=== PATIENT | male | born 1975 | race Caucasian/White ===

== ENCOUNTER 2017-12-04 06:25 | Day surgery (SDC) | payer BC ==
[~2017-12-04 06:25] MED LIST: Lactated Ringers 1,000 ML IV SCH; Sodium Chloride 0.9% 10 ML Syringe FLUSH PRN; Sodium Chloride 0.9% 2.5 ML Syringe FLUSH PRN; ceFAZolin 2 GM in Premix Bag 1 BAG IV ONE
--- NOTE | 2017-12-04 07:25 | PCM.PREANE ---
Preanesthetic Assessment - Procedure Proposed Procedure: inguinal hernia repair - Anesthesia/Transfusion/Family Hx Anesthesia History: Prior Anesthesia Without Reaction Transfusion History: No Prior Transfusion(s) Intubation History: Unknown Additional History: Prior right hernia repair as child, two repairs on left in past. - Review of Systems General: No Symptoms, Other (HPI hernia) Pulmonary: No Symptoms Cardiovascular: No Symptoms Gastrointestinal: No Symptoms Neurological: No Symptoms Other: Reports: None - Physical Assessment NPO Status Date: 12/03/17 NPO Status Time: 22:00 O2 Sat by Pulse Oximetry: 96 Respiratory Rate: 16 Vital Signs: Last Vital Signs Temp 98.2 F 12/04/17 06:39 Pulse 71 12/04/17 06:39 Resp 16 12/04/17 06:39 BP 127/85 12/04/17 06:39 Pulse Ox 96 12/04/17 06:39 Height: 5 ft 10 in Weight: 201 lb ASA Class: 1 Mental Status: Alert & Oriented x3 Airway Class: Mallampati = 1 Dentition: Reports: Normal Dentition Thyro-Mental Finger Breadths: 3 Mouth Opening Finger Breadths: 3 ROM/Head Extension: Full Lungs: Clear to Auscultation, Normal Respiratory Effort Cardiovascular: Regular Rate, Regular Rhythm, No Murmurs - Allergies Allergies/Adverse Reactions: Allergies Allergy/AdvReac Type Severity Reaction Status Date / Time No Known Allergies Allergy Verified 11/27/17 15:19 - Blood Blood Available: No Product(s) Available: None - Acknowledgements Anesthesia Type Planned: General Anesthesia (OET) Pt an Appropriate Candidate for the Planned Anesthesia: Yes Alternatives and Risks of Anesthesia Discussed w Pt/Guardian: Yes Pt/Guardian Understands and Agrees with Anesthesia Plan: Yes PreAnesthesia Questionnaire HEENT History: Reports: None Gastrointestinal History: Reports: None - Past Surgical History Head Surgeries/Procedures: Reports: None HEENT Surgical History: Reports: Naso-Sinus Surgery GI Surgical History: Reports: Hernia, Inguinal Other GI Surgeries/Procedures: hx rt inguinal hernia repair x1 and left inguinal hernia repair x2 - SUBSTANCE USE Smoking Status *Q: Never Smoker Recreational Drug Use History: No - HOME MEDS Home Medications: Home Meds . [No Known Home Meds] 09/01/17 [History] - CURRENT (IN HOUSE) MEDS Current Meds: Current Medications Lactated Ringer's (Ringers, Lactated) 1,000 mls @ 125 mls/hr IV ASDIRECTED LAZARO Last Admin: 12/04/17 06:43 Dose: 125 mls/hr Sodium Chloride (Saline Flush) 10 ml FLUSH ASDIRECTED PRN PRN Reason: Keep Vein Open Sodium Chloride (Saline Flush) 2.5 ml FLUSH ASDIRECTED PRN PRN Reason: Keep Vein Open Discontinued Medications Cefazolin Sodium/Dextrose 2 gm (/ Premix) 50 mls @ 100 mls/hr IV ONETIME ONE Stop: 12/03/17 10:23
[2017-12-04] MEDS ORDERED: Propofol 200 MG/20 ML SDV ONE (07:28)
[2017-12-04] MEDS ORDERED: Lidocaine 2% 5 ML SDV ONE (07:28)
[2017-12-04] MEDS ORDERED: Rocuronium 10 MG/ML 10 ML Syringe ONE (07:28)
[2017-12-04] MEDS ORDERED: Midazolam 1 MG/ML 2 ML SDV ONE (07:28)
[2017-12-04] MEDS ORDERED: fentaNYL 100 MCG/2 ML SDV ONE (07:28)
[2017-12-04] MEDS ORDERED: Bupivacaine 25%/EPINEPHrine/PF 0 ML ONE (07:29)
[2017-12-04] MEDS ORDERED: ceFAZolin/Dextrose,Iso-Osmotic 2 GM/50 ML Duplex Bag IV ONE (07:42)
[2017-12-04] MEDS ORDERED: Bupivacaine 0.5% 30 ML SDV ONE (07:47)
[2017-12-04] MEDS ORDERED: Ketorolac 30 MG/ML SDV ONE (08:32)
[2017-12-04] MEDS ORDERED: Ondansetron 4 MG/2 ML SDV ONE (08:32)
[2017-12-04] MEDS ORDERED: Metoclopramide 10 MG/2 ML SDV ONE (08:32)
[2017-12-04] MEDS ORDERED: Dexamethasone 4 MG/ML 5 ML MDV ONE (08:32)
[2017-12-04] MEDS ORDERED: fentaNYL 100 MCG/2 ML SDV IVPUSH PRN (08:52)
[2017-12-04] MEDS ORDERED: Glycopyrrolate 0.2 MG/ML SDV ONE (09:33)
[2017-12-04] MEDS ORDERED: Neostigmine Methylsulfate 1 MG/ML 5 ML Syringe ONE (09:33)
--- NOTE | 2017-12-04 09:50 | PCM.OPNOTE ---
- General Post-Op/Procedure Note Date of Surgery/Procedure: 12/04/17 Operative Procedure(s): Right recurrent inguinal hernia repair Findings: Direct hernia on right side proximal to internal ring. Moderate amount of scar tissue. Pre Op Diagnosis: Recurrent inguinal hernia Post-Op Diagnosis: Right direct inguinal hernia Anesthesia Technique: General ET Tube Primary Surgeon: Erika Denis Condition: Good
--- NOTE | 2017-12-04 10:54 | PCM.POSTAN ---
POST ANESTHESIA ASSESSMENT - MENTAL STATUS Mental Status: Alert, Oriented Free Text/Narrative:: no complaint of pain nor nausea; limited narcotic use for case. - RESPIRATORY Respiratory Status: Respiratory Rate WNL, Airway Patent, O2 Saturation Stable - CARDIOVASCULAR CV Status: Pulse Rate WNL, Blood Pressure Stable - GASTROINTESTINAL GI Status: No Symptoms - POST OP HYDRATION Hydration Status: Adequate & Stable
--- NOTE | 2017-12-04 12:04 | OR ---
SURGEON: AMBERLY KUMAR MD DATE OF PROCEDURE: 12/04/2017 PREOPERATIVE DIAGNOSIS: Recurrent inguinal hernia. POSTOPERATIVE DIAGNOSIS: Direct inguinal hernia. PROCEDURE PERFORMED: Right inguinal hernia repair. ANESTHESIA: General endotracheal anesthesia. FLUIDS: See anesthesia record. ESTIMATED BLOOD LOSS: 10 mL. FINDINGS: Direct inguinal hernia close to the internal ring. Moderate amount of scar tissue within the inguinal canal. COMPLICATIONS: None. INDICATIONS: The patient is a 41-year-old male who presents with symptomatic right inguinal hernia. He previously had this repaired primarily as a child. We discussed an open inguinal hernia repair. I explained the procedure as well as expected perioperative course. I explained to him the risks including bleeding, infection, or damage to surrounding structures. These risks are increased given the fact that this is a recurrent inguinal hernia repair. The patient verbalized understanding and wishes to proceed. PROCEDURE IN DETAIL: The patient was brought into the OR and placed on the OR table in supine position. A time-out was completed verifying the patient's name, age, date of , allergies, and procedure to be performed. General endotracheal anesthesia was induced. The lower abdomen, upper legs, and groin were prepped in standard fashion. The area right above the right inguinal ligament was anesthetized with 0.5% Marcaine plain. An oblique incision was made about 1 fingerbreadth above the inguinal ligament. Cautery was used to dissect down through the subcutaneous fat. An area of thickened scar tissue was noted. Metzenbaum scissors was used to dissect the tissue away. It is felt that this was the remnant of the external oblique fascia. This was opened primarily with Metzenbaum scissors and blunt dissection was used to identify my spermatic cord down to the level of the pubic tubercle. Once I identified the pubic tubercle, I then cleared away the soft tissue along the inguinal ligament and superiorly along the transversalis fascia. I then was able to free up the cord structures at the level of the pubic tubercle and encircled it with a [place] drain. I then followed the cord structures up to the level of the internal ring. No indirect inguinal hernia sac was noted. The patient was, however, found to have a defect in the floor of the inguinal canal proximal to the internal ring consistent with a direct inguinal hernia. This was very small and there were no intestinal contents noted within the sac. This was easily reduced back into the abdomen. A medium sized Prolene mesh was then opened and placed in the field. This was trimmed to size to fit along the inguinal canal. The mesh was sutured to the pubic tubercle medially along the ilioinguinal ligament inferiorly and along the transversalis fascia superiorly. This was done using interrupted 0 Ethibond suture. A slit was made in the mesh to allow passage of the cord contents through it. This was closed in such a manner to allow enough room for just the tip of my finger to pass through. The area was then irrigated and the tissue overlying the cord structures was closed with a running 3-0 Vicryl suture along the previously opened external oblique fascia. Another running 3-0 Vicryl was used to close the subcutaneous fat over this. The skin was then closed using a running 4-0 Monocryl suture. Steri-Strips and sterile dressings were applied. The testicle was palpated in the scrotum and found to be in good position. The patient tolerated procedure well and was taken to PACU in stable condition. EVELYNE CHASE /[id number]
--- NOTE | 2017-12-04 12:13 | PCM48HPAN ---
Post Anesthesia Note - EVALUATION WITHIN 48HRS OF ANESTHETIC Vital Signs in Normal Range: Yes Patient Participated in Evaluation: Yes Respiratory Function Stable: Yes Airway Patent: Yes Cardiovascular Function Stable: Yes Hydration Status Stable: Yes Pain Control Satisfactory: Yes Nausea and Vomiting Control Satisfactory: Yes Mental Status Recovered: Yes Resp Rate: 14
== END 2017-12-04 12:33 | disposition home or self-care (01) ==
LOC: MW.SDS 06:25
PROVIDERS: ATTEND Surgery
DX: K40.91 Unilateral inguinal hernia, without obstruction or gangrene, recurrent (principal); Z98.890 Other specified postprocedural states
CPT/HCPCS: 49520; C1781; J0690; J1100; J1885; J2250; J2405; J2765; J3010; J7120; 00830; J2704

== ENCOUNTER 2021-06-21 10:55 | Day surgery (SDC) | payer BC ==
[~2021-06-21 10:55] MED LIST changes: +Midazolam 1 MG/ML 2 ML SDV ONE; +Propofol 200 MG/20 ML SDV ONE; +Sodium Chloride 0.9% 10 ML SDV IV PRN; -ceFAZolin 2 GM in Premix Bag 1 BAG IV ONE
--- NOTE | 2021-06-21 11:36 | PCM.PREANE ---
Preanesthetic Assessment - Procedure Proposed Procedure: Colonoscopy - Anesthesia/Transfusion/Family Hx Anesthesia History: Prior Anesthesia Without Reaction Family History of Anesthesia Reaction: No Transfusion History: No Prior Transfusion(s) Intubation History: Unknown - Review of Systems General: No Symptoms Pulmonary: No Symptoms Cardiovascular: No Symptoms Gastrointestinal: No Symptoms Neurological: No Symptoms Other: Reports: None - Physical Assessment NPO Status Date: 06/19/21 NPO Status Time: 20:30 (Solids, >6 hr Liq) Height: 5 ft 10 in Weight: 78.018 kg ASA Class: 1 Mental Status: Alert & Oriented x3 Airway Class: Mallampati = 2 Dentition: Reports: Normal Dentition Thyro-Mental Finger Breadths: 3 Mouth Opening Finger Breadths: 3 - Allergies Allergies/Adverse Reactions: Allergies Allergy/AdvReac Type Severity Reaction Status Date / Time No Known Allergies Allergy Verified 06/15/21 07:51 - Acknowledgements Anesthesia Type Planned: General Anesthesia Pt an Appropriate Candidate for the Planned Anesthesia: Yes Alternatives and Risks of Anesthesia Discussed w Pt/Guardian: Yes Pt/Guardian Understands and Agrees with Anesthesia Plan: Yes PreAnesthesia Questionnaire HEENT History: Reports: None Cardiovascular History: Reports: None Respiratory History: Reports: None Gastrointestinal History: Reports: None Genitourinary History: Reports: None Musculoskeletal History: Reports: None Neurological History: Reports: Other (See Below) Other Neuro History: "possible concussion" Psychiatric History: Reports: None Endocrine/Metabolic History: Reports: None Hematologic History: Reports: None Immunologic History: Reports: None Oncologic (Cancer) History: Reports: None Dermatologic History: Reports: None - Past Surgical History Head Surgeries/Procedures: Reports: None HEENT Surgical History: Reports: Naso-Sinus Surgery Other HEENT Surgeries/Procedures: sinus surgery x2 Cardiovascular Surgical History: Reports: None Respiratory Surgical History: Reports: None GI Surgical History: Reports: Hernia, Inguinal Other GI Surgeries/Procedures: hx rt inguinal hernia repair x1 and left inguinal hernia repair x2 Male Surgical History: Reports: Vasectomy Endocrine Surgical History: Reports: None Neurological Surgical History: Reports: None Musculoskeletal Surgical History: Reports: None Oncologic Surgical History: Reports: None Dermatological Surgical History: Reports: None - SUBSTANCE USE Tobacco Use Status *Q: Never Tobacco User Recreational Drug Use History: No - HOME MEDS Home Medications: Home Meds . [No Known Home Meds] 09/01/17 [History] - CURRENT (IN HOUSE) MEDS Current Meds: Current Medications Lactated Ringer's (Ringers, Lactated) 1,000 mls @ 125 mls/hr IV ASDIRECTED LAZARO Sodium Chloride (Sodium Chloride 0.9% 10 Ml Syringe) 10 ml FLUSH ASDIRECTED PRN PRN Reason: Keep Vein Open Sodium Chloride (Sodium Chloride 0.9% 2.5 Ml Syringe) 2.5 ml FLUSH ASDIRECTED PRN PRN Reason: Keep Vein Open Sodium Chloride (Sodium Chloride 0.9% 10 Ml Syringe) 10 ml FLUSH ASDIRECTED PRN PRN Reason: Keep Vein Open Sodium Chloride (Sodium Chloride 0.9% 2.5 Ml Syringe) 2.5 ml FLUSH ASDIRECTED PRN PRN Reason: Keep Vein Open Sodium Chloride (Sodium Chloride 0.9% 10 Ml Sdv) 10 ml IV ASDIRECTED PRN PRN Reason: IV Use Discontinued Medications Midazolam HCl (Midazolam 1 Mg/Ml 2 Ml Sdv) Confirm Administered Dose 2 mg .ROUTE .STK-MED ONE Stop: 06/21/21 07:23 Propofol (Propofol 200 Mg/20 Ml Sdv) Confirm Administered Dose 600 mg .ROUTE .STK-MED ONE Stop: 06/21/21 07:23
--- NOTE | 2021-06-21 13:57 | PCM.OPNOTE ---
- General Post-Op/Procedure Note Date of Surgery/Procedure: 06/21/21 Operative Procedure(s): Screening colonoscopy Findings: 2 small sigmoid colon polyps. Sigmoid colon diverticulosis Pre Op Diagnosis: Screening colonoscopy Post-Op Diagnosis: Diverticulosis, sigmoid colon polyp [place] [facility] [place] Surgeon: Erika Denis Condition: Good
--- NOTE | 2021-06-21 14:00 | PCM.POSTAN ---
POST ANESTHESIA ASSESSMENT - MENTAL STATUS Mental Status: Alert, Oriented - VITAL SIGNS Vital Signs: Last Vital Signs Temp 97.5 F 06/21/21 11:50 Pulse 60 06/21/21 11:50 Resp 16 06/21/21 11:50 BP 109/71 06/21/21 11:50 Pulse Ox 98 06/21/21 11:50 - RESPIRATORY Respiratory Status: Respiratory Rate WNL, Airway Patent, O2 Saturation Stable - CARDIOVASCULAR CV Status: Pulse Rate WNL, Blood Pressure Stable - GASTROINTESTINAL GI Status: No Symptoms - PAIN Pain Score: 0 - POST OP HYDRATION Hydration Status: Adequate & Stable
--- NOTE | 2021-06-21 14:04 | PCM48HPAN ---
Post Anesthesia Note - EVALUATION WITHIN 48HRS OF ANESTHETIC Vital Signs in Normal Range: Yes Patient Participated in Evaluation: Yes Respiratory Function Stable: Yes Airway Patent: Yes Cardiovascular Function Stable: Yes Hydration Status Stable: Yes Pain Control Satisfactory: Yes Nausea and Vomiting Control Satisfactory: Yes Mental Status Recovered: Yes Vital Signs: Last Vital Signs Temp 97.5 F 06/21/21 11:50 Pulse 60 06/21/21 11:50 Resp 16 06/21/21 11:50 BP 109/71 06/21/21 11:50 Pulse Ox 98 06/21/21 11:50 - COMMENTS/OBSERVATIONS Free Text/Narrative:: Pt doing well post-op. VSS. No apparent anesthetic complications. Dr. Helio Sal
--- NOTE | 2021-06-22 13:45 | OR ---
SURGEON: ERIKA DENIS MD DATE OF PROCEDURE: 06/21/2021 PREOPERATIVE DIAGNOSIS: Screening colonoscopy. POSTOPERATIVE DIAGNOSES: 1. Diverticulosis. 2. Sigmoid colon polyp x2. PROCEDURE PERFORMED: Screening colonoscopy with polypectomy. PRIMARY SURGEON: Erika Denis MD ANESTHESIA: MAC. INSTRUMENT USED: Olympus colonoscope. EXTENT OF EXAM: To the cecum. PREPARATION: Good. LIMITATIONS: None. INDICATIONS FOR EXAMINATION: The patient is a 45-year-old male who presents for screening colonoscopy. I explained the procedure, expected perioperative course, and the risks. He verbalized understanding and wishes to proceed. PROCEDURE IN DETAIL: The patient was brought to the endoscopy suite and placed in the left lateral decubitus position. A time-out was completed verifying the patient's name, age, date of , allergies, and procedure to be performed. Monitored anesthesia care was induced and continuous oxygen was provided via nasal cannula throughout the procedure. After adequate sedation was achieved, a digital rectal exam was performed. This exam was within normal limits. A well-lubricated colonoscope was inserted into the rectum and advanced under direct visualization to the level of the cecum. The cecum was identified by both visual and anatomic landmarks. A photograph was taken of the cecal cap as well. However, I was unable to retroflex the scope within the cecum due to looping of the scope more proximally. The scope was then fully withdrawn while examining the color, texture, anatomy, and integrity of mucosa from the cecum to the anal canal. The patient was noted to have some scattered diverticula within the sigmoid colon. In the distal sigmoid, I found 2 small sessile polyps. These were taken out in piecemeal fashion using cold biopsy forceps. The scope was then brought into the rectum and retroflexed to allow visualization of the anal canal opening. This appeared normal. A photograph was taken. The scope was then straightened out and fully withdrawn. The cecum to anus time was 12 minutes. The patient tolerated the procedure well and was transferred to the PACU in stable condition. ENDOSCOPIC DIAGNOSES: 1. Diverticulosis. 2. Sigmoid colon polyps x2. RECOMMENDATIONS: Follow up in clinic in 2 weeks. EVELYNE CHASE /[id number]
== END 2021-06-21 14:31 | disposition home or self-care (01) ==
LOC: MW.SDS 10:55
PROVIDERS: ATTEND Surgery
DX: Z12.11 Encounter for screening for malignant neoplasm of colon (principal); K63.5 Polyp of colon; K57.30 Diverticulosis of large intestine without perforation or abscess without bleeding; Z98.890 Other specified postprocedural states
CPT/HCPCS: 45380; J2250; J2704; J7120; 00812; 88305